=== PATIENT | female | born 1965 | race Caucasian/White ===

== ENCOUNTER → 2017-07-23 | Outpatient (CLI) | payer MEDICAID ==
[2017-07-23 11:12] LABS: Basophils % (A) 0 %; CH 31.4; CHCM 32.7; Eosinophils # (A) 0.2 k/uL (0-0.7); Eosinophils % (A) 5 %; HCT 44.2 % (34.0-46.0); HDW 2.86; HGB 14.5 gm/dL (11.4-16.0); Luc # (Auto) 0.16; Luc % (Auto) 4; Lymphocytes # (A) 0.6 k/uL (1.0-4.8); Lymphocytes % (A) 14 %; MCH 31.7 pg (25.0-35.0); MCHC 32.8 g/dL (31.0-37.0); MCV 96.4 fL (80.0-100.0); Mean Platelet Volume 8.3; Monocytes # (A) 0.2 k/uL (0-1.0); Monocytes % (A) 5 %; Neutrophils # (A) 3.3 k/uL (1.3-7.7); Neutrophils % (A) 73 %; RBC 4.58 m/uL (3.80-5.40); RDW 14.8 % (11.5-15.5); WBC 4.5 k/uL (3.8-10.6)
[2017-07-23 11:23] LABS: ALT 27 U/L (9-52); AST 26 U/L (14-36); Alkaline Phosphatase 95 U/L (38-126); Anion Gap 11 mmol/L; Blood Urea Nitrogen 12 mg/dL (7-17); Calcium 9.3 mg/dL (8.4-10.2); Carbon Dioxide 26 mmol/L (22-30); Chloride 109 mmol/L (98-107); Glucose 95 mg/dL (74-99); Non-African American GFR(MDRD) >60 (>60 ml/min/1.73 sqM); Potassium 3.7 mmol/L (3.5-5.1); Sodium 146 mmol/L (137-145); Total Protein 7.4 g/dL (6.3-8.2)
== END | disposition home or self-care (01) ==
LOC: LABWHC1 10:43
PROVIDERS: ATTEND Internal Medicine Rheumatology
DX: M06.4 Inflammatory polyarthropathy (principal)
CPT/HCPCS: 36415; 80053; 85025

== ENCOUNTER → 2018-07-27 | Outpatient (CLI) | payer MEDICAID ==
[2018-07-27 11:38] LABS: Basophils % (A) 1 %; Eosinophils # (A) 0.5 k/uL (0-0.7); Eosinophils % (A) 10 %; HCT 41.3 % (34.0-46.0); HGB 13.2 gm/dL (11.4-16.0); Lymphocytes # (A) 0.8 k/uL (1.0-4.8); Lymphocytes % (A) 16 %; MCH 31.1 pg (25.0-35.0); MCHC 31.9 g/dL (31.0-37.0); MCV 97.5 fL (80.0-100.0); Mean Platelet Volume 7.9; Monocytes # (A) 0.3 k/uL (0-1.0); Monocytes % (A) 5 %; Neutrophils # (A) 3.5 k/uL (1.3-7.7); Neutrophils % (A) 67 %; Platelet Count 205 k/uL (150-450); RBC 4.24 m/uL (3.80-5.40); RDW 13.6 % (11.5-15.5); WBC 5.2 k/uL (3.8-10.6)
[2018-07-27 11:58] LABS: Albumin 3.8 g/dL (3.5-5.0); Total Bilirubin 0.6 mg/dL (0.2-1.3); Total Protein 6.9 g/dL (6.3-8.2)
[2018-07-27 12:14] LABS: T4, Free (Free Thyroxine) 0.95 ng/dL (0.78-2.19)
[2018-07-27 14:09] LABS: Erythrocyte Sedimentation Rate 32 mm/hr (0-20)
[2018-07-27 16:44] LABS: Iron Saturation 20.69 (12.00-45.00)
[2018-07-27 16:53] LABS: Vitamin D 25 Hydroxy 34.1 ng/mL (30.0-100.0)
== END | disposition home or self-care (01) ==
LOC: LABWHC1 11:08
PROVIDERS: ATTEND Surgery
DX: K90.9 Intestinal malabsorption, unspecified (principal); E56.9 Vitamin deficiency, unspecified; M06.4 Inflammatory polyarthropathy
CPT/HCPCS: 36415; 80053; 82306; 82607; 82746; 83540; 83550; 84439; 84443; 84466; 84480; 85025; 85652

== ENCOUNTER → 2019-01-25 | Outpatient (CLI) | payer MEDICAID ==
--- NOTE | 2019-01-27 08:49 | MM ---
Reason for exam: screening (asymptomatic). Last mammogram was performed 5 years and 4 months ago. History: Patient is postmenopausal. Physical Findings: A clinical breast exam by your physician is recommended on an annual basis and results should be correlated with mammographic findings. MG 3D Screening Mammo W/Cad Bilateral CC and MLO view(s) were taken. Prior study comparison: September 09, 2013, bilateral digital screening mammo w/CAD. There are scattered fibroglandular densities. No significant changes when compared with prior studies. ASSESSMENT: Benign, BI-RAD 2 RECOMMENDATION: Routine screening mammogram of both breasts in 1 year.
== END | disposition home or self-care (01) ==
LOC: RADMAMWWP 13:12
PROVIDERS: ATTEND Internal Medicine
DX: Z12.31 Encounter for screening mammogram for malignant neoplasm of breast (principal)
CPT/HCPCS: 77063; 77067

== ENCOUNTER → 2019-04-21 | Outpatient (CLI) | payer MEDICAID ==
[2019-04-21 10:24] LABS: Basophils % (A) 1 %; Eosinophils # (A) 0.5 k/uL (0-0.7); Eosinophils % (A) 10 %; HGB 13.7 gm/dL (11.4-16.0); Lymphocytes # (A) 0.7 k/uL (1.0-4.8); Lymphocytes % (A) 15 %; MCH 30.3 pg (25.0-35.0); MCHC 31.9 g/dL (31.0-37.0); MCV 95.1 fL (80.0-100.0); Mean Platelet Volume 7.8; Monocytes # (A) 0.3 k/uL (0-1.0); Monocytes % (A) 6 %; Neutrophils # (A) 3.1 k/uL (1.3-7.7); Neutrophils % (A) 64 %; Platelet Count 227 k/uL (150-450); RBC 4.52 m/uL (3.80-5.40); RDW 14.3 % (11.5-15.5); WBC 4.8 k/uL (3.8-10.6)
[2019-04-21 12:28] LABS: Erythrocyte Sedimentation Rate 26 mm/hr (0-20)
[2019-04-21 18:07] LABS: Albumin 4.2 g/dL (3.80-4.90); Albumin/Globulin Ratio 1.68 (1.60-3.17); Anion Gap 10.6 mmol/L (4.00-12.00); Calcium 8.9 mg/dL (8.7-10.3); Carbon Dioxide 25.4 mmol/L (21.6-31.8); Globulin 2.5 g/dL (1.6-3.3); Potassium 4.3 mmol/L (3.5-5.5); Total Bilirubin 0.7 mg/dL (0.2-1.2); Total Protein 6.7 g/dL (6.2-8.2)
== END ==
LOC: LABWHC1 09:39
PROVIDERS: ATTEND Internal Medicine Rheumatology
DX: M06.4 Inflammatory polyarthropathy (principal)
CPT/HCPCS: 36415; 80053; 85025; 85652

== ENCOUNTER → 2019-06-21 | Outpatient (CLI) | payer MEDICAID ==
[2019-06-21 15:41] LABS: LDL Cholesterol,Calculated 120.8 mg/dL (0.0-131.0); VLDL Calculation 17.2 mg/dL (5.00-40.00)
--- NOTE | 2019-06-21 16:58 | XR ---
EXAMINATION TYPE: XR chest 2V, XR cervical spine w flex/ext 7 views, XR ribs LT 4 views DATE OF EXAM: 06/21/2019 COMPARISON: None HISTORY: 53 year-old female left infraclavicular pain/lump, chest pain, left neck pain. FINDINGS: Chest: The cardiomediastinal silhouette, aorta, and pulmonary vasculature are within normal limits. Lungs an d pleural spaces are clear. Left RIBS: No displaced left rib fracture. Mild degenerative spurring at the AC joint. Clavicle appears intact. Cervical spine: Scattered uncovertebral joint and facet arthropathy causing variable mild narrowing of the neuroforam en particularly on the left. Posterior element bony fusion at C2-C3. Vertebral body heights are prese rved. Alignment is maintained. Normal odontoid view. Flexion and extension shows no dynamic subluxati ons. Degenerative changes at the C1 dens articulation. IMPRESSION: 1. Chest: No acute cardiopulmonary process. 2. Left RIBS: No displaced left rib fracture seen. 3. Cervical spine: Mild spondylotic change with variable mild bony neuroforaminal narrowing particula rly on the left. No spondylolisthesis or evidence for dynamic subluxation.
== END | disposition home or self-care (01) ==
LOC: LABWHC1 11:37
PROVIDERS: ATTEND Internal Medicine
DX: Z00.00 Encounter for general adult medical examination without abnormal findings (principal); M99.71 Connective tissue and disc stenosis of intervertebral foramina of cervical region; M43.02 Spondylolysis, cervical region; R07.89 Other chest pain; E88.81 Metabolic syndrome and other insulin resistance
CPT/HCPCS: 36415; 71046; 72052; 80061

== ENCOUNTER → 2019-10-25 | Outpatient (CLI) | payer MEDICAID ==
--- NOTE | 2019-10-25 12:55 | US ---
EXAMINATION TYPE: US thyroid st tissue head/neck DATE OF EXAM: 10/25/2019 COMPARISON: NONE CLINICAL HISTORY: R59.1 Generalized enlarged lymph nodes,E04.1. palpable left lesion on supraclavicul ar region GLAND SIZE: Right Lobe: 4.4 x 1.0 x 1.0 cm Overall Parenchyma: homogenous Left Lobe: 3.2 x 1.0 x 0.9 cm Overall Parenchyma: homogeneous Isthmus Thickness: 0.3 cm NODULES RIGHT: # of nodules measured on right: 0 LEFT: # of nodules measured on left: 0 ISTHMUS: # of nodules measured in the isthmus: 0 Bilateral neck scanned, no evidence of lymphadenopathy. *palpable felt at left supraclavicular area appears to be 1.8cm lipoma, isoechoic area IMPRESSION: Lipoma noted at the site of palpable abnormality left supraclavicular region. Normal appearance of th e thyroid gland.
== END | disposition home or self-care (01) ==
LOC: RADUSWWP 12:14
PROVIDERS: ATTEND Internal Medicine
DX: D17.0 Benign lipomatous neoplasm of skin and subcutaneous tissue of head, face and neck (principal)
CPT/HCPCS: 76536

== ENCOUNTER → 2019-12-06 | Outpatient (CLI) | payer MEDICAID ==
[2019-12-06 17:42] LABS: Appearance,Urine Clear (Clear); Basophils % (A) 1 %; Bilirubin,Urine Negative (Negative); Blood,Urine Negative (Negative); Color,Urine Yellow; Eosinophils # (A) 0.3 k/uL (0-0.7); Eosinophils % (A) 4 %; Glucose,Urine (UA) Negative (Negative); HCT 41.3 % (34.0-46.0); HGB 13.4 gm/dL (11.4-16.0); Ketones,Urine Negative (Negative); Leukocyte Esterase,Urine Negative (Negative); Lymphocytes % (A) 14 %; MCH 31.1 pg (25.0-35.0); MCHC 32.4 g/dL (31.0-37.0); MCV 95.9 fL (80.0-100.0); Mean Platelet Volume 8.2; Monocytes # (A) 0.4 k/uL (0-1.0); Monocytes % (A) 6 %; Neutrophils # (A) 5.5 k/uL (1.3-7.7); Neutrophils % (A) 74 %; Nitrite,Urine Negative (Negative); PH, Urine 5.5 (5.0-8.0); Platelet Count 220 k/uL (150-450); Protein,Urine Negative (Negative); RBC 4.31 m/uL (3.80-5.40); RDW 13.2 % (11.5-15.5); Specific Gravity,Urine 1.013 (1.001-1.035); Urobilinogen,Urine <2.0 mg/dL (<2.0); WBC 7.5 k/uL (3.8-10.6)
[2019-12-06 18:02] LABS: Protein/Creatinine Ratio,Urine 0.1
[2019-12-06 22:10] LABS: Erythrocyte Sedimentation Rate 35 mm/hr (0-20)
[2019-12-07 01:02] LABS: Anion Gap 9.6 mmol/L (4.00-12.00); BUN/Creat Ratio 13.33 Ratio (12.00-20.00); C Reactive Protein 0.7 mg/dL (0.0-0.8); Calcium 8.8 mg/dL (8.7-10.3); Carbon Dioxide 26.4 mmol/L (21.6-31.8); Non-African American GFR(CKD) 72.5 (60.0-200.0); Potassium 3.9 mmol/L (3.5-5.5)
[2019-12-07 01:39] LABS: Anti-DNA, DS unit <1.0 IU/mL; DNA Double-Stranded NEGATIVE (NEGATIVE)
== END | disposition home or self-care (01) ==
LOC: LABWHC1 16:26
PROVIDERS: ATTEND Internal Medicine Rheumatology
DX: M32.9 Systemic lupus erythematosus, unspecified (principal)
CPT/HCPCS: 36415; 80048; 81003; 82570; 84156; 84450; 84460; 85025; 85652; 86140; 86160; 86162; 86225

== ENCOUNTER → 2020-07-24 | Outpatient (CLI) | payer MEDICAID ==
--- NOTE | 2020-07-24 11:58 | XR ---
EXAMINATION TYPE: XR abdomen 1V DATE OF EXAM: 07/24/2020 COMPARISON: NONE HISTORY: Pain TECHNIQUE: Single supine KUB image of the abdomen is obtained FINDINGS: Small bowel demonstrates no evidence for dilatation or air fluid levels. Gas and fecal material is seen in non-distended colon. No convincing evidence for pneumoperitoneum. No unusual calcifications. The lung bases are clear. The osseous structures are intact. IMPRESSION: 1. Overall nonobstructive bowel gas pattern. Moderate fecal stasis.
[2020-07-24 12:12] LABS: Basophils % (A) 1 %; Eosinophils # (A) 0.2 k/uL (0-0.7); Eosinophils % (A) 5 %; HCT 42.3 % (34.0-46.0); HGB 13.6 gm/dL (11.4-16.0); Lymphocytes # (A) 0.8 k/uL (1.0-4.8); Lymphocytes % (A) 16 %; MCHC 32.1 g/dL (31.0-37.0); MCV 96.4 fL (80.0-100.0); Mean Platelet Volume 8.6; Monocytes # (A) 0.3 k/uL (0-1.0); Monocytes % (A) 7 %; Neutrophils # (A) 3.3 k/uL (1.3-7.7); Neutrophils % (A) 69 %; Platelet Count 251 k/uL (150-450); RBC 4.38 m/uL (3.80-5.40); RDW 13.6 % (11.5-15.5); WBC 4.8 k/uL (3.8-10.6)
[2020-07-24 12:28] LABS: Appearance,Urine Clear (Clear); Bacteria,Urine Occasional /hpf; Bilirubin,Urine Negative (Negative); Blood,Urine Negative (Negative); Color,Urine Light Yellow; Glucose,Urine (UA) Negative (Negative); Ketones,Urine Negative (Negative); Leukocyte Esterase,Urine Trace (Negative); Nitrite,Urine Negative (Negative); PH, Urine 6.5 (5.0-8.0); Protein,Urine Negative (Negative); RBC,Urine <1 /hpf (0-5); Specific Gravity,Urine 1.005 (1.001-1.035); Squamous Epithelial Cell,Urine 2 /hpf (0-4); Urobilinogen,Urine <2.0 mg/dL (<2.0); WBC,Urine 2 /hpf (0-5)
[2020-07-24 12:57] LABS: Protein/Creatinine Ratio,Urine 0.265
[2020-07-24 19:08] LABS: Anti-DNA, DS unit <1.0 IU/mL; DNA Double-Stranded NEGATIVE (NEGATIVE)
[2020-07-24 19:14] LABS: T4, Free (Free Thyroxine) 1.1 ng/dL (0.80-1.80)
[2020-07-24 19:18] LABS: Anion Gap 9.6 mmol/L (4.00-12.00); C Reactive Protein 0.6 mg/dL (0.0-0.8); Calcium 9.4 mg/dL (8.7-10.3); Carbon Dioxide 27.4 mmol/L (21.6-31.8); Non-African American GFR(CKD) 63.8 (60.0-200.0); Potassium 4.2 mmol/L (3.5-5.5)
[2020-07-24 20:15] LABS: Erythrocyte Sedimentation Rate 45 mm/Hr (0-30)
== END | disposition home or self-care (01) ==
LOC: LABWHC1 10:19
PROVIDERS: ATTEND Internal Medicine
DX: K59.8 Other specified functional intestinal disorders (principal); K59.04 Chronic idiopathic constipation; D64.89 Other specified anemias; M25.50 Pain in unspecified joint; R60.9 Edema, unspecified; M79.7 Fibromyalgia; E03.9 Hypothyroidism, unspecified; K76.0 Fatty (change of) liver, not elsewhere classified; G25.81 Restless legs syndrome; M32.9 Systemic lupus erythematosus, unspecified; E53.8 Deficiency of other specified B group vitamins; Z92.25 Personal history of immunosuppression therapy; Z79.899 Other long term (current) drug therapy
CPT/HCPCS: 36415; 74018; 80048; 81001; 82570; 84156; 84439; 84443; 85025; 85652; 86140; 86160; 86162; 86225

== ENCOUNTER → 2020-09-04 | Outpatient (CLI) | payer MEDICAID | END | disposition home or self-care (01) | LOC: LABWHC1 14:11 | PROVIDERS: ATTEND Internal Medicine | DX: Z20.828 Contact with and (suspected) exposure to other viral communicable diseases (principal); R50.81 Fever presenting with conditions classified elsewhere | CPT/HCPCS: U0003; C9803 ==

== ENCOUNTER → 2020-09-25 | Outpatient (CLI) | payer MEDICAID ==
--- NOTE | 2020-09-25 14:53 | XR ---
EXAMINATION TYPE: XR chest 2V DATE OF EXAM: 09/25/2020 COMPARISON: Chest x-ray June 21, 2019 HISTORY: Shortness of breath and wheeze.Covid+ 3 weeks ago. TECHNIQUE: Frontal and lateral views of the chest are obtained. FINDINGS: There is no focal air space opacity, pleural effusion, or pneumothorax seen. The cardiac silhouette size is within normal limits. The osseous structures are intact. IMPRESSION: No suspicious acute pulmonary process currently.
== END | disposition home or self-care (01) ==
LOC: RADXRMAIN 14:32
PROVIDERS: ATTEND Internal Medicine
DX: R06.89 Other abnormalities of breathing (principal); R06.02 Shortness of breath; U07.1 COVID-19
CPT/HCPCS: 71046

== ENCOUNTER → 2021-02-05 | Outpatient (CLI) | payer MEDICAID ==
--- NOTE | 2021-02-05 13:31 | XR ---
EXAMINATION TYPE: XR knee limited LT DATE OF EXAM: 02/05/2021 CLINICAL HISTORY: Pain. TECHNIQUE: Two views of the left knee are obtained. COMPARISON: None. FINDINGS: There is no acute fracture/dislocation evident in left knee. Medial and lateral meniscal c alcification consistent with chondrocalcinosis. [id number] tricompartmental joint space loss an d mild spurring. The overlying soft tissue appears unremarkable. IMPRESSION: As above.
--- NOTE | 2021-02-05 13:32 | XR ---
EXAMINATION TYPE: XR hand complete LT DATE OF EXAM: 02/05/2021 CLINICAL HISTORY: Pain worse and third finger TECHNIQUE: Frontal, lateral and oblique images of the left hand are obtained. COMPARISON: None. FINDINGS: There is no acute fracture/dislocation evident in the left hand. Mild narrowing throughout the PIP and DIP joints of the fingers. Relative sparing of the MCP joints. No significant spurring. The overlying soft tissue appears unremarkable. IMPRESSION: As above.
--- NOTE | 2021-02-05 13:33 | XR ---
EXAMINATION TYPE: XR lumbosacral spine min 4V DATE OF EXAM: 02/05/2021 CLINICAL HISTORY: Left leg paresthesia and pain. TECHNIQUE: Frontal, lateral, and oblique images of the lumbar spine are obtained. COMPARISON: None FINDINGS: There are 5 lumbar type vertebral bodies identified. The lumbar spine shows straightens a lignment without evidence of acute fracture or dislocation. Mild disc space narrowing and anterior sp urring L2-L3 level. Vertebral body heights are maintained. The oblique images appear within normal l imits. The overlying soft tissue appears unremarkable. IMPRESSION: As above.
== END ==
LOC: RADXRMAIN 10:02
PROVIDERS: ATTEND Internal Medicine
DX: M51.36 Other intervertebral disc degeneration, lumbar region (principal); M76.892 Other specified enthesopathies of left lower limb, excluding foot; M25.842 Other specified joint disorders, left hand
CPT/HCPCS: 72110

== ENCOUNTER 2021-07-28 12:08 | Emergency (ER) | payer MEDICAID ==
[2021-07-28 12:23] VITALS: RESP 18
[2021-07-28] MEDS ORDERED: diphenhydrAMINE 50 MG/ML 1 ML VIAL IVP STA (13:09)
[2021-07-28] MEDS ORDERED: METOCLOPRAMIDE 5 MG/ML 2 ML VIAL IVP STA (13:09)
[2021-07-28] MEDS ORDERED: MAGNESIUM SULFATE-D5W PMX 1 GM in DEXTROSE/WATER 1 100ML.BAG IVPB ONE (13:10)
[2021-07-28 13:21] LABS: Basophils % (A) 0 %; Eosinophils # (A) 0.3 k/uL (0-0.7); Eosinophils % (A) 4 %; HCT 44.3 % (34.0-46.0); HGB 14.8 gm/dL (11.4-16.0); Lymphocytes # (A) 0.8 k/uL (1.0-4.8); Lymphocytes % (A) 12 %; MCH 33.2 pg (25.0-35.0); MCHC 33.3 g/dL (31.0-37.0); MCV 99.6 fL (80.0-100.0); Mean Platelet Volume 8.9; Monocytes # (A) 0.4 k/uL (0-1.0); Monocytes % (A) 5 %; Neutrophils # (A) 5.2 k/uL (1.3-7.7); Neutrophils % (A) 77 %; Platelet Count 239 k/uL (150-450); RBC 4.45 m/uL (3.80-5.40); RDW 13.8 % (11.5-15.5); WBC 6.7 k/uL (3.8-10.6)
[2021-07-28 13:31] LABS: INR 0.9 (<1.2); Partial Thromboplastin Time 24.5 sec (22.0-30.0); Prothrombin Time 9.8 sec (9.0-12.0)
[2021-07-28 13:32] LABS: ALT 18 U/L (4-34); AST 28 U/L (14-36); African American GFR (CKD) >90 (>60 ml/min/1.73 sqM); Albumin 4.3 g/dL (3.5-5.0); Alkaline Phosphatase 115 U/L (38-126); Anion Gap 11 mmol/L; Blood Urea Nitrogen 12 mg/dL (7-17); Calcium 9.4 mg/dL (8.4-10.2); Carbon Dioxide 25 mmol/L (22-30); Chloride 107 mmol/L (98-107); Glucose 149 mg/dL (74-99); Non-African American GFR(CKD) 85 (>60 ml/min/1.73 sqM); Potassium 3.4 mmol/L (3.5-5.1); Sodium 143 mmol/L (137-145); Total Bilirubin 0.6 mg/dL (0.2-1.3); Total Protein 7.4 g/dL (6.3-8.2)
--- NOTE | 2021-07-28 13:40 | ED ---
General Adult HPI - General Chief complaint: Recheck/Abnormal Lab/Rx Stated complaint: eleavted BP Source: patient Mode of arrival: ambulatory Limitations: no limitations - History of Present Illness Initial comments: Patient is a 56-year-old female with past medical history of lupus, GERD who presents emergency room and with reported hypertension. 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 3 weeks ago while at work she had an episode of sudden onset dizziness, headache and a sensation that she just didn't feel well. Reports the episode improved after a short period of time and she didn't think much of it. Patient states once again that she had sudden onset of similar symptoms yesterday while at work. Denies any provocative factors. She did sit down and her coworker took her blood pressure and it was noted to be extremely high. Patient does not have a history of high blood pressure does not take any medications for blood pressure control. She has had no recent medication changes. She admits that she began having a headache. This is not the worse headache of her life. No vision changes. Does admit to some photophobia. She has not taken any medications for her symptoms. No fevers or chills. Denies any neck pain or stiffness. No head trauma. She denies any weakness in her extremities. Denies fevers, chills or cough. No abdominal pain. No changes in her bowel or bladder habits. Patient denies previous history of cardiac disease. No chest pain or shortness of breath. The patient checked her blood pressure at home before coming into the emergency department today and it was noted to be high therefore she came in for evaluation. 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 - Related Data Home Medications Medication Instructions Recorded Confirmed DULoxetine HCL [Cymbalta] 60 mg PO BID 08/10/14 07/28/21 Hydroxychloroquine Sulfate 200 mg PO BID 08/10/14 07/28/21 [Plaquenil] Pantoprazole Sodium [Protonix] 40 mg PO DAILY 08/10/14 07/28/21 azaTHIOprine [Imuran] 25 mg PO BID 12/13/14 07/28/21 B,C/Folic/Zinc/Copper Ox/Vit E 1 tab PO DAILY 07/28/21 07/28/21 [Stress B-Complex Tablet] Calcium Carbonate [Calcium] 600 mg PO DAILY 07/28/21 07/28/21 Levothyroxine Sodium [Synthroid] 88 mcg PO DAILY 07/28/21 07/28/21 Multivitamins, Thera [Multivitamin 1 tab PO DAILY 07/28/21 07/28/21 (formulary)] Previous Rx's Medication Instructions Recorded amLODIPine [Norvasc] 5 mg PO DAILY #20 tab 07/28/21 Allergies Allergy/AdvReac Type Severity Reaction Status Date / Time No Known Allergies Allergy Verified 07/28/21 14:31 Review of Systems ROS Statement: Those systems with pertinent positive or pertinent negative responses have been documented in the HPI. ROS Other: All systems not noted in ROS Statement are negative. Past Medical History Past Medical History: GERD/Reflux, Musculoskeletal Disorder, Sleep Apnea/CPAP/BIPAP, Thyroid Disorder Additional Past Medical History / Comment(s): Lupus History of Any Multi-Drug Resistant Organisms: None Reported Past Surgical History: Section, Cholecystectomy, Hysterectomy, Orthopedic Surgery, Tonsillectomy Additional Past Surgical History / Comment(s): 4 Left knee surgeries Past Psychological History: Depression Smoking Status: Never smoker Past Alcohol Use History: Occasional Past Drug Use History: None Reported General Exam Limitations: no limitations General appearance: alert, in no apparent distress Head exam: Present: atraumatic, normocephalic, normal inspection Eye exam: Present: normal appearance, PERRL, EOMI. Absent: scleral icterus, conjunctival injection, periorbital swelling ENT exam: Present: normal exam, mucous membranes moist Neck exam: Present: normal inspection. Absent: tenderness, meningismus, lymphadenopathy Respiratory exam: Present: normal lung sounds bilaterally. Absent: respiratory distress, wheezes, rales, rhonchi, stridor Cardiovascular Exam: Present: regular rate, normal rhythm, normal heart sounds. Absent: systolic murmur, diastolic murmur, rubs, gallop, clicks GI/Abdominal exam: Present: soft, normal bowel sounds. Absent: distended, tenderness, guarding, rebound, rigid Extremities exam: Present: normal inspection, full ROM, normal capillary refill. Absent: tenderness, pedal edema, joint swelling, calf tenderness Back exam: Present: normal inspection Neurological exam: Present: alert, oriented X3, CN II-XII intact Psychiatric exam: Present: normal affect, normal mood Skin exam: Present: warm, dry, intact, normal color. Absent: rash Course Vital Signs 07/28/21 07/28/21 07/28/21 12:17 12:34 12:45 Temperature 97.4 F L Pulse Rate 101 H 105 H 98 Respiratory 18 Rate Blood Pressure 192/94 160/77 160/77 O2 Sat by Pulse 96 97 Oximetry 07/28/21 07/28/21 07/28/21 13:00 13:15 13:30 Temperature Pulse Rate 98 86 88 Respiratory Rate Blood Pressure 148/74 164/96 177/95 O2 Sat by Pulse 98 85 L 97 Oximetry 07/28/21 07/28/21 07/28/21 13:45 14:00 14:15 Temperature Pulse Rate 86 82 81 Respiratory Rate Blood Pressure 163/87 175/88 159/85 O2 Sat by Pulse 96 94 L Oximetry 07/28/21 14:30 Temperature 97.5 F L Pulse Rate 80 Respiratory Rate Blood Pressure 140/98 O2 Sat by Pulse 95 Oximetry EKG Findings - EKG Comments: EKG Findings:: EKG demonstrates normal sinus rhythm with ventricular rate of 100 . IN 130. QRS 134. QTC of 510. This right bundle-branch block. No old EKG for comparison. No acute ST segment elevations or depressions Medical Decision Making - Medical Decision Making Upon arrival patient was placed into room 4. A thorough history and physical exam was performed. 12-lead EKG was performed which demonstrates a right bu ndle-branch block. Nothing to compare to. IV is inserted. The patient was given 1 g of magnesium, 10 mg of Reglan and 25 mg of Benadryl. That decreases her conducted and the patient went for chest x-ray. Upon reevaluation the patient has had improvement in her symptoms. States her headache is now 3 out of 10. Blood pressure is improved on its own therefore she is given a dose of Toradol for further pain improvement. I discussed diagnosis, differential and treatment options. At this time the patient will be discharged home with a low- dose prescription for high blood pressure medication. She is instructed to take her blood pressures 2-3 times daily and keep a log. She is to follow up with her primary care doctor in regards to her blood pressure readings. She is instructed take the medication of her blood pressures greater than 140/90. The patient is a new or worsening symptoms she needs to return to the emergency room. Patient was in agreement with the treatment plan and discharged home in stable condition - Lab Data Result diagrams: 07/28/21 13:13 07/28/21 13:13 Lab Results 07/28/21 07/28/21 07/28/21 Range/Units 13:13 13:13 13:13 WBC 6.7 (3.8-10.6) k/uL RBC 4.45 (3.80-5.40) m/uL Hgb 14.8 (11.4-16.0) gm/dL Hct 44.3 (34.0-46.0) % MCV 99.6 (80.0-100.0) fL MCH 33.2 (25.0-35.0) pg MCHC 33.3 (31.0-37.0) g/dL RDW 13.8 (11.5-15.5) % Plt Count 239 (150-450) k/uL MPV 8.9 Neutrophils % 77 % Lymphocytes % 12 % Monocytes % 5 % Eosinophils % 4 % Basophils % 0 % Neutrophils # 5.2 (1.3-7.7) k/uL Lymphocytes # 0.8 L (1.0-4.8) k/uL Monocytes # 0.4 (0-1.0) k/uL Eosinophils # 0.3 (0-0.7) k/uL Basophils # 0.0 (0-0.2) k/uL PT 9.8 (9.0-12.0) sec INR 0.9 (<1.2) APTT 24.5 (22.0-30.0) sec Sodium 143 (137-145) mmol/L Potassium 3.4 L (3.5-5.1) mmol/L Chloride 107 (98-107) mmol/L Carbon Dioxide 25 (22-30) mmol/L Anion Gap 11 mmol/L BUN 12 (7-17) mg/dL Creatinine 0.79 (0.52-1.04) mg/dL Est GFR (CKD-EPI)AfAm >90 (>60 ml/min/1.73 sqM) Est GFR (CKD-EPI)NonAf 85 (>60 ml/min/1.73 sqM) Glucose 149 H (74-99) mg/dL Calcium 9.4 (8.4-10.2) mg/dL Total Bilirubin 0.6 (0.2-1.3) mg/dL AST 28 (14-36) U/L ALT 18 (4-34) U/L Alkaline Phosphatase 115 (38-126) U/L Troponin I (0.000-0.034) ng/mL Total Protein 7.4 (6.3-8.2) g/dL Albumin 4.3 (3.5-5.0) g/dL TSH 1.470 (0.465-4.680) mIU/L 07/28/21 Range/Units 13:13 WBC (3.8-10.6) k/uL RBC (3.80-5.40) m/uL Hgb (11.4-16.0) gm/dL Hct (34.0-46.0) % MCV (80.0-100.0) fL MCH (25.0-35.0) pg MCHC (31.0-37.0) g/dL RDW (11.5-15.5) % Plt Count (150-450) k/uL MPV Neutrophils % % Lymphocytes % % Monocytes % % Eosinophils % % Basophils % % Neutrophils # (1.3-7.7) k/uL Lymphocytes # (1.0-4.8) k/uL Monocytes # (0-1.0) k/uL Eosinophils # (0-0.7) k/uL Basophils # (0-0.2) k/uL PT (9.0-12.0) sec INR (<1.2) APTT (22.0-30.0) sec Sodium (137-145) mmol/L Potassium (3.5-5.1) mmol/L Chloride (98-107) mmol/L Carbon Dioxide (22-30) mmol/L Anion Gap mmol/L BUN (7-17) mg/dL Creatinine (0.52-1.04) mg/dL Est GFR (CKD-EPI)AfAm (>60 ml/min/1.73 sqM) Est GFR (CKD-EPI)NonAf (>60 ml/min/1.73 sqM) Glucose (74-99) mg/dL Calcium (8.4-10.2) mg/dL Total Bilirubin (0.2-1.3) mg/dL AST (14-36) U/L ALT (4-34) U/L Alkaline Phosphatase (38-126) U/L Troponin I <0.012 (0.000-0.034) ng/mL Total Protein (6.3-8.2) g/dL Albumin (3.5-5.0) g/dL TSH (0.465-4.680) mIU/L Disposition Clinical Impression: Cephalgia, Hypertension Disposition: HOME SELF-CARE Condition: Stable Instructions (If sedation given, give patient instructions): Hypertension (ED) Additional Instructions: Please measure your blood pressure twice to three times daily and keep a log. F ollow up with your PCP. Take the blood pressure pill if your blood pressure is greater than 140/80. Return to the ED for any new or worsening symptoms. Prescriptions: amLODIPine [Norvasc] 5 mg PO DAILY #20 tab Is patient prescribed a controlled substance at d/c from ED?: No Referrals: Ashley Alas DO [Primary Care Provider] - 1-2 days Time of Disposition: 14:28
--- NOTE | 2021-07-28 13:47 | XR ---
EXAMINATION TYPE: XR chest 2V DATE OF EXAM: 07/28/2021 COMPARISON: Chest x-ray 09/25/2020 HISTORY: Cough and pain TECHNIQUE: Frontal and lateral views of the chest are obtained. FINDINGS: There is no focal air space opacity, pleural effusion, or pneumothorax seen. The cardiac silhouette size is within normal limits. There are overlying leads. Right hemidiaphragm remains eleva svetlana. The osseous structures are intact. IMPRESSION: No acute cardiopulmonary process.
[2021-07-28] MEDS ORDERED: KETOROLAC 15 MG/ML 1 ML VIAL IVP STA (14:26)
[2021-07-28 14:36] VITALS: BP 140/98; PULSE 80; TEMP 97.5
== END 2021-07-28 14:43 | disposition home or self-care (01) ==
LOC: EC 12:08
DX: I10 Essential (primary) hypertension (principal); K21.9 Gastro-esophageal reflux disease without esophagitis; F32.9 Major depressive disorder, single episode, unspecified; Z79.890 Hormone replacement therapy; Z79.899 Other long term (current) drug therapy
CPT/HCPCS: 36415; 93005; 80053; 84443; 84484; 85025; 85610; 85730; 71046; 96365; 96375 ×3; 99284; J1200; J2765; J3475; J1885

== ENCOUNTER → 2021-12-05 | Outpatient (CLI) | payer MEDICAID ==
[2021-12-05 18:46] LABS: Basophils # (A) 0.04 X 10*3/uL (0.00-0.10); Basophils % (A) 0.7 %; Eosinophils # (A) 0.08 X 10*3/uL (0.04-0.35); Eosinophils % (A) 1.4 %; HCT 39.3 % (37.2-46.3); HGB 12.7 g/dL (12.0-15.0); Lymphocytes # (A) 0.83 X 10*3/uL (0.90-5.00); Lymphocytes % (A) 14.7 %; MCH 32.8 pg (27.0-32.0); MCHC 32.3 g/dL (32.0-37.0); MCV 101.6 fL (80.0-97.0); Mean Platelet Volume 10.6 fL (9.5-12.2); Monocytes # (A) 0.54 X 10*3/uL (0.20-1.00); Monocytes % (A) 9.6 %; Neutrophils # (A) 4.13 X 10*3/uL (1.80-7.70); Neutrophils % (A) 73.2 %; Platelet Count 294 X 10*3/uL (140-440); RBC 3.87 X 10*6/uL (4.10-5.20); RDW 14.1 % (11.5-14.5); WBC 5.64 X 10*3/uL (4.50-10.00)
[2021-12-05 20:01] LABS: Erythrocyte Sedimentation Rate 54 mm/Hr (0-30)
[2021-12-05 21:07] LABS: African American GFR (CKD) 82.8 (60.0-200.0); Albumin 4.2 g/dL (3.8-4.9); Albumin/Globulin Ratio 1.62 (1.60-3.17); Anion Gap 15.9 mmol/L (10.00-18.00); BUN/Creat Ratio 9.33 Ratio (12.00-20.00); Blood Urea Nitrogen 8.4 mg/dL (9.0-27.0); C Reactive Protein 0.8 mg/dL (0.00-0.80); Calcium 8.8 mg/dL (8.7-10.3); Carbon Dioxide 22.1 mmol/L (20.0-27.5); Globulin 2.6 g/dL (1.6-3.3); Non-African American GFR(CKD) 71.5 (60.0-200.0); Total Bilirubin 0.4 mg/dL (0.30-1.20); Total Protein 6.8 g/dL (6.2-8.2)
== END | disposition home or self-care (01) ==
LOC: LABWHC1 12:51
PROVIDERS: ATTEND Internal Medicine Rheumatology
DX: Z79.899 Other long term (current) drug therapy (principal)
CPT/HCPCS: 36415; 80053; 85025; 85652; 86140

== ENCOUNTER → 2021-12-30 | Outpatient (CLI) | payer MEDICAID ==
[2021-12-30 18:58] LABS: Basophils # (A) 0.03 X 10*3/uL (0.00-0.10); Basophils % (A) 0.5 %; Eosinophils # (A) 0 X 10*3/uL (0.04-0.35); Eosinophils % (A) 0 %; HCT 42.2 % (37.2-46.3); HGB 13.5 g/dL (12.0-15.0); Lymphocytes % (A) 13.4 %; MCH 32.4 pg (27.0-32.0); MCV 101.2 fL (80.0-97.0); Mean Platelet Volume 10.5 fL (9.5-12.2); Monocytes # (A) 0.42 X 10*3/uL (0.20-1.00); Neutrophils # (A) 4.72 X 10*3/uL (1.80-7.70); Neutrophils % (A) 78.9 %; Platelet Count 309 X 10*3/uL (140-440); RBC 4.17 X 10*6/uL (4.10-5.20); RDW 12.9 % (11.5-14.5); WBC 5.98 X 10*3/uL (4.50-10.00)
[2021-12-30 19:22] LABS: African American GFR (CKD) 78.5 (60.0-200.0); Albumin 4.3 g/dL (3.8-4.9); Albumin/Globulin Ratio 1.27 (1.60-3.17); Anion Gap 13.2 mmol/L (10.00-18.00); BUN/Creat Ratio 10.19 Ratio (12.00-20.00); Blood Urea Nitrogen 9.6 mg/dL (9.0-27.0); Calcium 9.4 mg/dL (8.7-10.3); Carbon Dioxide 24.7 mmol/L (20.0-27.5); Globulin 3.4 g/dL (1.6-3.3); Magnesium 2.1 mg/dL (1.5-2.4); Non-African American GFR(CKD) 67.7 (60.0-200.0); Phosphorus 3.7 mg/dL (2.4-5.1); Potassium 4.1 mmol/L (3.5-5.5); T4, Free (Free Thyroxine) 1.01 ng/dL (0.800-1.800); Total Bilirubin 0.6 mg/dL (0.30-1.20); Total Protein 7.7 g/dL (6.2-8.2)
== END | disposition home or self-care (01) ==
LOC: LABWHC1 12:16
PROVIDERS: ATTEND Internal Medicine
DX: I10 Essential (primary) hypertension (principal); Z79.899 Other long term (current) drug therapy; F06.4 Anxiety disorder due to known physiological condition; M32.10 Systemic lupus erythematosus, organ or system involvement unspecified; Z90.3 Acquired absence of stomach [part of]; R00.2 Palpitations
CPT/HCPCS: 36415; 80053; 83735; 84100; 84439; 84443; 85025

== ENCOUNTER → 2022-12-12 | Outpatient (CLI) | payer MEDICAID ==
[2022-12-12 18:24] LABS: C Reactive Protein 1.1 mg/dL (0.00-0.80)
[2022-12-12 18:26] LABS: African American GFR (CKD) 72.4 (60.0-200.0); Albumin 4.2 g/dL (3.8-4.9); Albumin/Globulin Ratio 1.31 (1.60-3.17); Anion Gap 9.8 mmol/L (10.00-18.00); BUN/Creat Ratio 9.3 Ratio (12.00-20.00); Blood Urea Nitrogen 9.3 mg/dL (9.0-27.0); Calcium 9.2 mg/dL (8.7-10.3); Carbon Dioxide 27.2 mmol/L (20.0-27.5); Globulin 3.2 g/dL (1.6-3.3); Non-African American GFR(CKD) 62.5 (60.0-200.0); Potassium 4.4 mmol/L (3.5-5.5); Total Bilirubin 0.5 mg/dL (0.30-1.20); Total Protein 7.4 g/dL (6.2-8.2)
[2022-12-12 21:03] LABS: DNA Double-Stranded NEGATIVE (NEGATIVE)
== END | disposition home or self-care (01) ==
LOC: LABWHC1 10:47
PROVIDERS: ATTEND Internal Medicine Rheumatology
DX: M32.9 Systemic lupus erythematosus, unspecified (principal); Z79.899 Other long term (current) drug therapy
CPT/HCPCS: 36415; 80053; 85025; 85652; 86140; 86160; 86225

== ENCOUNTER → 2023-02-27 | Outpatient (CLI) | payer MEDICAID ==
[2023-02-27 19:29] LABS: C Reactive Protein 1.3 mg/dL (0.00-0.80)
[2023-02-27 19:40] LABS: Basophils # (A) 0.02 X 10*3/uL (0.00-0.10); Basophils % (A) 0.3 %; Eosinophils # (A) 0.21 X 10*3/uL (0.04-0.35); Eosinophils % (A) 3.6 %; HCT 41.5 % (37.2-46.3); HGB 12.9 g/dL (12.0-15.0); Immature Grans, Automated 0.3 %; Lymphocytes # (A) 0.64 X 10*3/uL (0.90-5.00); Lymphocytes % (A) 10.9 %; MCHC 31.1 g/dL (32.0-37.0); MCV 99.8 fL (80.0-97.0); Mean Platelet Volume 10.7 fL (9.5-12.2); Monocytes # (A) 0.41 X 10*3/uL (0.20-1.00); NRBC Per 100 WBC 0 /100 WBCS (0.0-0.0); Neutrophils # (A) 4.55 X 10*3/uL (1.80-7.70); Neutrophils % (A) 77.9 %; Platelet Count 291 X 10*3/uL (140-440); RBC 4.16 X 10*6/uL (4.10-5.20); RDW 14.6 % (11.5-14.5); WBC 5.85 X 10*3/uL (4.50-10.00)
[2023-02-27 20:02] LABS: African American GFR (CKD) 72.4 (60.0-200.0); Albumin 4.1 g/dL (3.8-4.9); Albumin/Globulin Ratio 1.24 (1.60-3.17); Anion Gap 13.2 mmol/L (10.00-18.00); BUN/Creat Ratio 7.4 Ratio (12.00-20.00); Blood Urea Nitrogen 7.4 mg/dL (9.0-27.0); Calcium 9.4 mg/dL (8.7-10.3); Carbon Dioxide 24.8 mmol/L (20.0-27.5); Globulin 3.3 g/dL (1.6-3.3); Non-African American GFR(CKD) 62.5 (60.0-200.0); Potassium 4.9 mmol/L (3.5-5.5); Total Bilirubin 0.4 mg/dL (0.30-1.20); Total Protein 7.4 g/dL (6.2-8.2)
[2023-02-27 20:09] LABS: Erythrocyte Sedimentation Rate 55 mm/Hr (0-30)
[2023-02-27 20:59] LABS: DNA Double-Stranded NEGATIVE (NEGATIVE)
== END | disposition home or self-care (01) ==
LOC: LABWHC1 11:03
PROVIDERS: ATTEND Internal Medicine Rheumatology
DX: M32.9 Systemic lupus erythematosus, unspecified (principal); Z79.899 Other long term (current) drug therapy
CPT/HCPCS: 36415; 80053; 85025; 85652; 86140; 86160; 86225

== ENCOUNTER 2023-04-02 11:23 | Emergency (ER) | payer MEDICAID ==
--- NOTE | 2023-04-02 12:44 | ED ---
Extremity Problem HPI - General Chief complaint: Extremity Injury, Lower Stated complaint: Left leg swelling Time Seen by Provider: 04/02/23 12:11 Source: patient, RN notes reviewed, old records reviewed Mode of arrival: ambulatory Limitations: no limitations - History of Present Illness Initial comments: This is a 57-year-old female to the emergency department for evaluation of severe right lower extremity pain. Patient does have severe Pain does have prior and she has been evaluated by an orthopedic doctor for right knee with known meniscal tear which is not correlating to her pain.. Patient has persistent right lower extremity pain here in the emergency department patient presents with pain worsening over time and now with increased swelling 2 days in the left wrist pain. The pain does not let up swelling is increasing daily and almost feels like it's increasing by the minute per the patient with increased swelling increased tenderness and increased pain MD Complaint: extremity pain, extremity swelling -: hour(s) Location: right, lower extremity -: Yes arthralgia Radiation: none Severity scale (1-10): 7 Quality: aching Consistency: constant Improves with: cold therapy Worsens with: nothing Associated Symptoms: denies other symptoms - Related Data Home Medications Medication Instructions Recorded Confirmed DULoxetine HCL [Cymbalta] 60 mg PO BID 08/10/14 03/26/23 Hydroxychloroquine Sulfate 200 mg PO BID 08/10/14 03/26/23 [Plaquenil] Pantoprazole Sodium [Protonix] 40 mg PO DAILY 08/10/14 03/26/23 azaTHIOprine [Imuran] 25 mg PO BID 12/13/14 03/26/23 B,C/Folic/Zinc/Copper Ox/Vit E 1 tab PO DAILY 07/28/21 03/26/23 [Stress B-Complex Tablet] Calcium Carbonate [Calcium] 600 mg PO DAILY 07/28/21 03/26/23 Levothyroxine Sodium [Synthroid] 88 mcg PO DAILY 07/28/21 03/26/23 Multivitamins, Thera [Multivitamin 1 tab PO DAILY 07/28/21 03/26/23 (formulary)] carvediloL [Coreg] 3.125 mg PO BID 03/26/23 03/26/23 Previous Rx's Medication Instructions Recorded amLODIPine [Norvasc] 5 mg PO DAILY #20 tab 07/28/21 Allergies Allergy/AdvReac Type Severity Reaction Status Date / Time No Known Allergies Allergy Verified 04/02/23 12:02 Review of Systems ROS Statement: Those systems with pertinent positive or pertinent negative responses have been documented in the HPI. ROS Other: All systems not noted in ROS Statement are negative. Past Medical History Past Medical History: GERD/Reflux, Hypertension, Musculoskeletal Disorder, Sleep Apnea/CPAP/BIPAP, Thyroid Disorder Additional Past Medical History / Comment(s): Lupus History of Any Multi-Drug Resistant Organisms: None Reported Past Surgical History: Section, Cholecystectomy, Hysterectomy, Orthopedic Surgery, Tonsillectomy Additional Past Surgical History / Comment(s): 4 Left knee surgeries Past Anesthesia/Blood Transfusion Reactions: No Reported Reaction Past Psychological History: Depression Smoking Status: Never smoker Past Alcohol Use History: Occasional Past Drug Use History: None Reported - Past Family History Father Family Medical History: Cancer, Diabetes Mellitus, Hypertension Mother Family Medical History: Hypertension, Renal Disease General Exam - General Exam Comments Initial Comments: Significant right lower extremity edema and tenderness to the calf Limitations: no limitations General appearance: alert, in no apparent distress Head exam: Present: atraumatic, normocephalic, normal inspection Eye exam: Present: normal appearance, PERRL, EOMI. Absent: scleral icterus, conjunctival injection, periorbital swelling ENT exam: Present: normal exam, mucous membranes moist Neck exam: Present: normal inspection. Absent: tenderness, meningismus, lymphadenopathy Respiratory exam: Present: normal lung sounds bilaterally. Absent: respiratory distress, wheezes, rales, rhonchi, stridor Cardiovascular Exam: Present: regular rate, normal rhythm, normal heart sounds. Absent: systolic murmur, diastolic murmur, rubs, gallop, clicks GI/Abdominal exam: Present: soft, normal bowel sounds. Absent: distended, tenderness, guarding, rebound, rigid Extremities exam: Present: normal inspection, full ROM, normal capillary refill. Absent: tenderness, pedal edema, joint swelling, calf tenderness Back exam: Present: normal inspection Neurological exam: Present: alert, oriented X3, CN II-XII intact Psychiatric exam: Present: normal affect, normal mood Skin exam: Present: warm, dry, intact, normal color. Absent: rash Course Vital Signs 04/02/23 04/02/23 04/02/23 12:02 14:22 15:12 Temperature 98.6 F 98.1 F 98 F Pulse Rate 98 78 76 Respiratory 18 16 16 Rate Blood Pressure 146/80 173/84 156/108 O2 Sat by Pulse 96 98 98 Oximetry - Reevaluation(s) Reevaluation #1: 04/02/23 22:15 Medical record is reviewed Reevaluation #2: 04/02/23 22:15 Patient has severe persistent right leg pain here in the ER Reevaluation #3: Patient informed results and questions answered Patient aware to follow up after surgery for hematoma evacuation due to pain would be best case scenario Reevaluation #4: 04/02/23 22:15 Was pt. sent in by a medical professional or institution? @ -no Did you speak to anyone other than the patient for history? @ -no Did you review nursing and triage notes? @ -agree Were old charts reviewed? @ -no Differential Diagnosis? @ -prior EKG interpreted by me (3pts min.)? @ -no X-rays interpreted by me (1pt min.)? @ -no CT interpreted by me (1pt min.)? @ -no U/S interpreted by me (1pt. min.)? @ -no What testing was considered but not performed? (CT, X-rays, U/S, labs)? Why? @ -no What meds were considered but not given? Why? @ -no Did you discuss the management of the patient with other professionals? @ -no Did you reconcile home meds? @ -no Was smoking cessation discussed for >3mins.? @ -no Was critical care preformed (if so, how long)? @ -no Were there social determinants of health that impacted care today? How? (Homelessness, low income, unemployed, alcoholism, drug addiction, transportation, low edu. Level, literacy, decrease access to med. care, senior care, rehab)? @ -no Was there de-escalation of care discussed even if they declined? (Discuss DNR or withdrawal of care, Hospice)? @ -no What co-morbidities impacted this encounter? (DM, HTN, Smoking, COPD, CAD, Cancer, CVA, Hep., AIDS, mental health diagnosis, sleep apnea, morbid obesity)? @ -no Was patient admitted / discharged? @ -dc Undiagnosed new problem with uncertain prognosis? @ -no Drug Therapy requiring intensive monitoring for toxicity (Heparin, Nitro, Insulin, Cardizem)? @ -no Were any procedures done? @ -no Diagnosis/symptom? @ -R leg hematoma Acute, or Chronic, or Acute on Chronic? @ -acute Uncomplicated (without systemic symptoms) or Complicated (systemic symptoms)? @ -uncomplicated Side effects of treatment? @ -none Exacerbation, Progression, or Severe Exacerbation] @ - Poses a threat to life or bodily function? @ -no - Consultations Consultation #1: Spoke with orthopedics ammunition and explosives handler for Dr. Tony regarding findings, recommend follow up with vascular surgery Medical Decision Making - Medical Decision Making 57 female to the emergency department to the emergency department for evaluation severe right leg pain with hematoma and edema of her right lower extremity, calf hematoma of significant size with severe pain and tenderness. Also negative for DVT patient can be discharged home to follow up with vascular surgery for possible hematoma evacuation and pain control - Radiology Data Radiology results: report reviewed (Ultrasound lower extremity negative for DVT), image reviewed Disposition Clinical Impression: Hematoma of right lower leg, Right leg pain, Leg edema, right Disposition: HOME SELF-CARE Condition: Good Instructions (If sedation given, give patient instructions): Hematoma (ED) Is patient prescribed a controlled substance at d/c from ED?: No Referrals: Sherrell Fitzpatrick DO [STAFF PHYSICIAN] - 1-2 days Joshua Tony MD [Medical Doctor] - 1-2 days Hector Marr MD [STAFF PHYSICIAN] - 1-2 days Time of Disposition: 15:05
--- NOTE | 2023-04-02 13:59 | US ---
EXAMINATION TYPE: US venous doppler duplex LE RT DATE OF EXAM: 04/02/2023 1:48 PM COMPARISON: NONE CLINICAL INDICATION: Female, 57 years old with history of DVT; No hx of DVT. Patient does not take bl ood thinners. Pain posterior upper calf. Hx of torn meniscus in December. SIDE PERFORMED: Right TECHNIQUE: The lower extremity deep venous system is examined utilizing real time linear array sonog cynthia with graded compression, doppler sonography and color-flow sonography. VESSELS IMAGED: Common Femoral Vein Deep Femoral Vein Greater Saphenous Vein * Femoral Vein Popliteal Vein Small Saphenous Vein * Proximal Calf Veins (* superficial vessels) Right Leg: No evidence of DVT. At patient's area of pain, within the right upper posterior calf, there appears to be a septated comp kimberly area: 8.6 x 4.3 x 1.6 cm. Impression: 1. No evidence for deep vein thrombosis of the right lower extremity. 2. Complex fluid collection in the posterior favored to represent a hematoma in the setting of blood thinners.
[2023-04-02 14:24] VITALS: RESP 16
[2023-04-02 15:16] VITALS: BP 156/108; PULSE 76; TEMP 98
== END 2023-04-02 15:30 | disposition home or self-care (01) ==
LOC: EC 11:23
DX: S80.11XA Contusion of right lower leg, initial encounter (principal); K21.9 Gastro-esophageal reflux disease without esophagitis; I10 Essential (primary) hypertension; E07.9 Disorder of thyroid, unspecified; F32.A Depression, unspecified; Z79.890 Hormone replacement therapy; Z79.899 Other long term (current) drug therapy; X58.XXXA Exposure to other specified factors, initial encounter
CPT/HCPCS: 99283

== ENCOUNTER 2023-04-16 13:06 | Day surgery (SDC) | payer MEDICAID ==
[2023-04-16 13:52] VITALS: RESP 18; TEMP 98.1
[2023-04-16 16:04] VITALS: BP 188/85; PULSE 84
--- NOTE | 2023-04-16 18:19 | US ---
EXAMINATION TYPE: US guided asp/inj major joint DATE OF EXAM: 04/16/2023 Comparison: Correlation MRI 01/30/2023 Clinical History: 57-year-old female with history of lupus, M25.561 PAIN IN RIGHT KNEE Procedure: 1. Ultrasound of the suprapatellar pouch of the right knee joint 2. Aspiration of the right knee joint with ultrasound guidance. Findings: Underlying moderate joint effusion and suggestion of possible mild synovial thickening in the right k nee. Technique: The procedure, risks, and alternatives, were discussed with the patient, who requested mj t we proceed. The consent form was signed, and teach-back occurred. The site/side of the procedure wa s marked with a line with participation by the patient. The accompanying paperwork was verified for c onsistency. A directed history and physical exam was performed prior to the procedure. Medication rec onciliation was performed by ancillary personnel. A critical pause was performed with assisting samir loo just prior to the procedure and the patient's identity was confirmed using 2 identifiers. Imagin g guidance was utilized to select the precise skin entry point just prior to the procedure, the right knee suprapatellar pouch via a lateral approach. The right knee was prepped and draped in the usual sterile fashion and local 1% lidocaine anesthesia was instilled. Under ultrasound guidance, an 18 gauge spinal needle was introduced into the right kne e joint effusion. Ultrasound confirmed the position of the needle tip. Aspiration yielded approximately 23 mL of clear yellow synovial fluid. Some floating debris was noted in the fluid. This was labeled and sent for lab oratory analysis. The needle was then removed. The patient tolerated the procedure well. There were no immediate complications. After the procedure, the patient's condition was unchanged. Es timated blood loss was minimal. The patient was instructed on routine postprocedure precautions, incl uding avoiding water on the area for the next 24 hours. IMPRESSION: Successful ultrasound guided right knee joint aspiration with 23 mL yellow synovial fluid removed. So me floating debris was noted in the fluid. Laboratory analysis pending.
[2023-04-16 22:12] LABS: Appearance,BF Clear; Color,BF Yellow
[2023-04-16 22:13] LABS: Nucleated Cells, Body Fluid 15 /uL; RBC, Body Fluid 995 /uL
[2023-04-17 05:29] LABS: Synovial Fld Crystals None Seen (None Seen)
== END 2023-04-16 15:07 | disposition home or self-care (01) ==
LOC: RADPROMAIN 13:06
PROVIDERS: ATTEND Internal Medicine Rheumatology
DX: M25.461 Effusion, right knee (principal)
CPT/HCPCS: 20611; 87070; 87075; 87205; 89050; 89060

== ENCOUNTER → 2024-01-21 | Outpatient (CLI) | payer MEDICAID ==
[2024-01-21 16:17] LABS: Appearance,Urine Clear (Clear); Bilirubin,Urine Negative (Negative); Blood,Urine Negative (Negative); Color,Urine Dark Yellow (Yellow); Ketones,Urine Negative (Negative); Nitrite,Urine Negative (Negative); Specific Gravity,Urine 1.017 (1.001-1.030)
[2024-01-21 18:39] LABS: Basophils # (A) 0.03 X 10*3/uL (0.00-0.10); Basophils % (A) 0.6 %; Eosinophils # (A) 0 X 10*3/uL (0.04-0.35); Eosinophils % (A) 0 %; HCT 36.7 % (37.2-46.3); HGB 11.7 g/dL (12.0-15.0); Lymphocytes # (A) 0.68 X 10*3/uL (0.90-5.00); MCH 31.9 pg (27.0-32.0); MCHC 31.9 g/dL (32.0-37.0); Mean Platelet Volume 10.3 FL (9.5-12.2); Monocytes # (A) 0.41 X 10*3/uL (0.20-1.00); Monocytes % (A) 7.8 %; NRBC Per 100 WBC 0 X 10*3/uL (0.00-0.01); Neutrophils # (A) 4.11 X 10*3/uL (1.80-7.70); Neutrophils % (A) 78.4 %; Platelet Count 309 X 10*3/uL (140-440); RBC 3.67 X 10*6/uL (4.10-5.20); RDW 14.5 % (11.5-14.5); WBC 5.24 X 10*3/uL (4.50-10.00)
[2024-01-21 19:59] LABS: Erythrocyte Sedimentation Rate 26 mm/Hr (0-30)
[2024-01-21 21:23] LABS: Creatine Kinase 229 U/L (26-186)
[2024-01-21 21:24] LABS: ALT 18 U/L (8-44); AST 24 U/L (13-35); Albumin 4.2 g/dL (3.8-4.9); Alkaline Phosphatase 122 U/L (41-126); BUN/Creat Ratio 12.78 Ratio (12.00-20.00); Blood Urea Nitrogen 11.5 mg/dL (9.0-27.0); Calcium 8.9 mg/dL (8.7-10.3); Carbon Dioxide 25.5 mmol/L (21.6-31.8); Chloride 105 mmol/L (96-109); Globulin 2.8 g/dL (1.6-3.3); Glucose 94 mg/dL (70-110); Potassium 4.3 mmol/L (3.5-5.5); Sodium 143 mmol/L (135-145); Total Bilirubin 0.5 mg/dL (0.3-1.2)
== END | disposition home or self-care (01) ==
LOC: LABWHC1 11:12
PROVIDERS: ATTEND Internal Medicine Rheumatology
DX: R70.0 Elevated erythrocyte sedimentation rate (principal); M35.9 Systemic involvement of connective tissue, unspecified; Z79.899 Other long term (current) drug therapy
CPT/HCPCS: 36415; 80053; 81003; 82550; 85025; 85652; 86140; 86160

== ENCOUNTER → 2024-01-29 | Outpatient (CLI) | payer MEDICAID ==
--- NOTE | 2024-01-30 13:19 | MR ---
EXAMINATION TYPE: MR thoracic spine wo con DATE OF EXAM: 01/29/2024 9:07 PM CLINICAL INDICATION:Female, 58 years old with history of M54.6 THORACIC PAIN; PHH, Mid back pain, corbin n down both legs. COMPARISON: No priors. TECHNIQUE: Multi planar, multi sequence imaging was performed utilizing: T1-weighted, short-tau inver alexx recovery and T2-weighted of the thoracic spine. IV Contrast: cc (none if empty) FINDINGS: Alignment: Alignment is within normal limits. Vertebral bodies have preserved heights. Spinal cord: Spinal cord is within normal limits for signal. Discs: Intervertebral disc signal is maintained. No evidence of significant spinal canal or neural fo raminal stenosis. There is no evidence of extradural defects or central spinal canal narrowing at any thoracic vertebral body level. Facet joint arthropathy mild to moderate at T11-T12 with moderate davina ateral neural foraminal stenosis. Osseous structures: No abnormal bony edema on inversion recovery sequences. Multilevel osteophyte for mation and facet joint arthropathy. Scattered Schmorl's nodes are seen throughout the spine. Scattere d disc space narrowing. T2 vertebral body height T2 signal lesion measuring 15 mm and T3 measuring 13 mm not well appreciated on T1-weighted imaging possibly relating to vertebral body he mangiomas. The heart is enlarged for size. IMPRESSION: 1. Mild to moderate degeneration changes of the spine. No evidence for significant spinal canal sten osis. 2. Facet joint arthropathy with moderate bilateral T11-T12 neural foraminal stenosis.
== END | disposition home or self-care (01) ==
LOC: RADMRIMAIN 19:55
PROVIDERS: ATTEND Orthopaedic Surgery
DX: M47.814 Spondylosis without myelopathy or radiculopathy, thoracic region (principal); M99.72 Connective tissue and disc stenosis of intervertebral foramina of thoracic region; M79.605 Pain in left leg; M79.604 Pain in right leg
CPT/HCPCS: 72146

== ENCOUNTER → 2024-05-05 | Outpatient (CLI) | payer MEDICAID ==
--- NOTE | 2024-05-05 14:10 | MM ---
Reason for Exam: Screening (asymptomatic). Last mammogram was performed 5 year(s) and 4 month(s) ago. Patient History: Menarche at age 11. First Full-Term at age 21. Left ovary removed at age 30. Right ovary removed at age 30. Hysterectomy at age 30. Postmenopausal. Risk Values: Lucie 5 year model risk: 1.3%. NCI Lifetime model risk: 7.6%. Prior Study Comparison: 02/02/2009 Screening Mammogram, [facility]. 09/09/2013 Bilateral Screening Mammogram, [facility]. 01/25/2019 Bilateral Screening Mammogram, [facility]. Tissue Density: The breasts are almost entirely fatty. Findings: Analyzed By CAD. Right breast: There is no suspicious group of microcalcifications or new suspicious mass. Left breast: There is no suspicious group of microcalcifications or new suspicious mass. Overall Assessment: Negative, BI-RAD 1 Management: Screening Mammogram of both breasts in [address] [facility] will attempt to contact patient to return for supplemental views and ultrasound if indicated. Patient should continue monthly self-breast exams. A clinical breast exam by your physician is recommended on an annual basis. This exam should not preclude additional follow-up of suspicious palpable abnormalities. Note on Lucie scores and lifetime risk: 1. A Lucie score greater than 3% is considered moderate risk. If this is the case, consider specialist referral to assess eligibility for a risk reducing agent. 2. If overall lifetime risk for the development of breast cancer is 20% or higher, the patient may qualify for future screening with alternating mammogram and breast MRI. Electronically signed and approved by: Srinath Watkins DO
[2024-05-05 16:02] LABS: Basophils # (A) 0.04 X 10*3/uL (0.00-0.10); Basophils % (A) 0.6 %; Eosinophils # (A) 0 X 10*3/uL (0.04-0.35); Eosinophils % (A) 0 %; HCT 38.1 % (37.2-46.3); Lymphocytes # (A) 0.57 X 10*3/uL (0.90-5.00); Lymphocytes % (A) 8.4 %; MCH 31.2 pg (27.0-32.0); MCHC 31.5 g/dL (32.0-37.0); Mean Platelet Volume 10.5 FL (9.5-12.2); Monocytes # (A) 0.39 X 10*3/uL (0.20-1.00); Monocytes % (A) 5.7 %; NRBC Per 100 WBC 0 X 10*3/uL (0.00-0.01); Neutrophils # (A) 5.79 X 10*3/uL (1.80-7.70); Platelet Count 275 X 10*3/uL (140-440); RBC 3.85 X 10*6/uL (4.10-5.20); RDW 14.7 % (11.5-14.5); WBC 6.81 X 10*3/uL (4.50-10.00)
[2024-05-05 16:22] LABS: Erythrocyte Sedimentation Rate 60 mm/Hr (0-30)
[2024-05-05 17:27] LABS: ALT 21 U/L (8-44); AST 22 U/L (13-35); Albumin 4.2 g/dL (3.8-4.9); Alkaline Phosphatase 130 U/L (41-126); Calcium 8.8 mg/dL (8.7-10.3); Carbon Dioxide 23.5 mmol/L (21.6-31.8); Chloride 106 mmol/L (96-109); Creatine Kinase 199 U/L (26-186); Globulin 2.8 g/dL (1.6-3.3); Glucose 129 mg/dL (70-110); Potassium 4.1 mmol/L (3.5-5.5); Sodium 143 mmol/L (135-145); Total Bilirubin 0.5 mg/dL (0.3-1.2)
[2024-05-06 01:08] LABS: DNA Double-Stranded POSITIVE
== END | disposition home or self-care (01) ==
LOC: RADMAMWWP 07:59
PROVIDERS: ATTEND Internal Medicine
DX: Z12.31 Encounter for screening mammogram for malignant neoplasm of breast (principal); M35.9 Systemic involvement of connective tissue, unspecified; Z79.899 Other long term (current) drug therapy; Z78.0 Asymptomatic menopausal state
CPT/HCPCS: 77063; 77067; 80053; 82550; 85025; 85652; 86140; 86160; 86225

== ENCOUNTER → 2024-10-31 | Outpatient (CLI) | payer MEDICAID ==
[2024-10-31 09:22] LABS: Appearance,Urine Cloudy (Clear); Bacteria,Urine Rare /hpf; Bilirubin,Urine Negative (Negative); Blood,Urine Negative (Negative); Color,Urine Yellow; Glucose,Urine (UA) Negative (Negative); Ketones,Urine Negative (Negative); Leukocyte Esterase,Urine Negative (Negative); Mucus,Urine Few /hpf; Nitrite,Urine Negative (Negative); PH, Urine 5.5 (5.0-8.0); Protein,Urine Trace (Negative); Specific Gravity,Urine 1.021 (1.001-1.035); Squamous Epithelial Cell,Urine 12 /hpf (0-4); Urobilinogen,Urine <2.0 mg/dL (<2.0); WBC,Urine 2 /hpf (0-5)
[2024-10-31 15:48] LABS: Basophils # (A) 0.04 X 10*3/uL (0.00-0.10); Basophils % (A) 0.7 %; Eosinophils # (A) 0.19 X 10*3/uL (0.04-0.35); Eosinophils % (A) 3.3 %; HGB 12.1 g/dL (12.0-15.0); Lymphocytes # (A) 0.57 X 10*3/uL (0.90-5.00); MCH 32.4 pg (27.0-32.0); MCHC 31.8 g/dL (32.0-37.0); MCV 101.6 FL (80.0-97.0); Mean Platelet Volume 10.6 FL (9.5-12.2); Monocytes # (A) 0.33 X 10*3/uL (0.20-1.00); Monocytes % (A) 5.8 %; NRBC Per 100 WBC 0 X 10*3/uL (0.00-0.01); Neutrophils # (A) 4.56 X 10*3/uL (1.80-7.70); Platelet Count 297 X 10*3/uL (140-440); RBC 3.74 X 10*6/uL (4.10-5.20); RDW 14.1 % (11.5-14.5)
[2024-10-31 16:25] LABS: Blood Urea Nitrogen 9.9 mg/dL (9.0-27.0); Carbon Dioxide 26.3 mmol/L (21.6-31.8); Chloride 106 mmol/L (96-109); Chol/HDL Ratio 3.14 Ratio; Glucose 98 mg/dL (70-110); Potassium 3.8 mmol/L (3.5-5.5); Sodium 144 mmol/L (135-145)
[2024-10-31 16:26] LABS: ALT 15 U/L (8-44); AST 18 U/L (13-35); Albumin 4.1 g/dL (3.8-4.9); Albumin/Globulin Ratio 1.71 Ratio (1.60-3.17); Alkaline Phosphatase 126 U/L (41-126); Bilirubin, Conjugated <0.20 mg/dL (0.20-0.40); Calcium 8.7 mg/dL (8.7-10.3); Globulin 2.4 g/dL (1.6-3.3); T4, Free (Free Thyroxine) 1.12 ng/dL (0.80-1.80); Total Bilirubin 0.5 mg/dL (0.3-1.2); Total Protein 6.5 g/dL (6.2-8.2)
[2024-10-31 16:45] LABS: Erythrocyte Sedimentation Rate 56 mm/Hr (0-30)
[2024-10-31 17:01] LABS: Bilirubin,Unconjugated >0.3 mg/dL (0.2-1.0)
[2024-11-01 01:34] LABS: DNA Double-Stranded Negative (Negative)
== END | disposition home or self-care (01) ==
LOC: LABWHC1 08:41
PROVIDERS: ATTEND Internal Medicine Rheumatology
DX: M32.9 Systemic lupus erythematosus, unspecified (principal); F33.1 Major depressive disorder, recurrent, moderate; M25.561 Pain in right knee; M79.645 Pain in left finger(s); R70.0 Elevated erythrocyte sedimentation rate; Z79.899 Other long term (current) drug therapy
CPT/HCPCS: 36415; 80053; 80061; 81001; 82248; 82306; 83036; 84439; 84443; 84479; 85025; 85652; 86140; 86160; 86225

== ENCOUNTER → 2025-02-09 | Outpatient (CLI) | payer MEDICAID ==
[2025-02-09 13:40] VITALS: BP 123/63; PULSE 84; RESP 16; TEMP 97.6
--- NOTE | 2025-02-09 14:44 | P.SLEEP ---
History of Present Illness DATE: 02/09/25 CONSULTATION/NEW PATIENT EVALUATION HISTORY OF PRESENT ILLNESS/SLEEP-WAKE EVALUATION: 69-year-old lady had been evaluated in the sleep center for obstructive sleep apnea hypopnea syndrome. Patient has history of obstructive sleep apnea for about 20 years. She did not have any sleep study since that time. Patient continued to use his CPAP equipment, but has multiple awakenings from sleep while using CPAP. SLEEP SCHEDULE: Usually sleep schedule from 10 PM to 5 AM on weekdays and from 11 PM to 8 AM on weekend. FALLING ASLEEP: Usually no problems with falling asleep. DURING SLEEP: Patient is using CPAP equipment but wakes up from sleep multiple times around 4 with 2 episodes of nocturia. No history of hypnogogical hallucinations, sleep paralysis, or cataplexy. DURING THE DAY/WAKE STATE: In the morning patient wake up tired, falling asleep during the day, has problems with concentration. Winston sleepiness scale is 7. Sometimes patient falling asleep during the day. PAST MEDICAL HISTORY: Lupus erythematosus, hypothyroidism, hypertension, depression. PAST SURGICAL HISTORY: Tonsillectomy, bariatric surgery. MEDICATIONS: Have been reviewed please see below. SOCIAL HISTORY: Please see below. FAMILY HISTORY: Please see below. REVIEW OF SYSTEMS: Multiple awakenings from sleep on CPAP. No fevers. No double vision. No recent chest pain. No shortness of breath. No abdominal pain. No bleeding episodes. No blood in urine. No seizure episodes. PHYSICAL EXAMINATION: GENERAL: A pleasant patient without any distress. VITAL SIGNS: Please see below, weight 281 pounds, BMI 50.5. HEENT: PERRLA, EOMI. Evaluation of oropharynx showed tongue protrudes midline, low position of soft palate Mallampati 4. NECK: Supple. No JVD. Thyroid is not palpable. 17-1/4 inches in circumference. LUNGS: Clear to percussion and to auscultation. Good air exchange. No wheezing or rhonchi. HEART: S1, S2 regular. No murmurs, gallops or rubs. ABDOMEN: Soft and nontender. Bowel sounds are present. No organomegaly appreciated. EXTREMITIES: No clubbing or cyanosis. TRANSMISSION SPECIALIST: Awake, alert, and oriented x3. Cranial nerves 2 to 7 intact. There is no fasciculation or atrophy noted. No focal deficits observed. ASSESSMENT: 1. Obstructive sleep apnea hypopnea syndrome for 20 years, nor any recent sleep study. Patient is on treatment with CPAP, but has multiple awakenings from sleep, significant change in cough weight up for last years. Extremely low position of soft 12 Mallampati 4, wide neck 17-1/4 inches in circumference. Obstructive sleep apnea hypopnea syndrome. 2. Obesity, BMI 50.5. 3. Lupus erythematosus. 4. Hypertension. 5. Hypothyroidism. 6 . Depression. 7. Status post tonsillectomy. 8. Status post bariatric surgery. PLAN: 1. Polysomnography for evaluation of patient's breathing during sleep at the present time. 2. Following plan after reading sleep study. 3. Preferable position during sleep on the side. 4. No driving if patient feels any sleepiness. Patient is aware of civil and criminal liability for unsafe driving. 5. Sleep hygiene with regular sleep time for at least 7.5-8 hours. 6. Watching and losing weight. Thank you very much for referring this patient for consultation. Sincerely, Seven Ndiaye MD, PhD, FAASM. Diplomat of [place] [employer], Sleep Medicine Board by [place] [employer] [place] [employer] [facility] [place] cc: Ashley Alas DO Past Medical History Past Medical History: GERD/Reflux, Hypertension, Musculoskeletal Disorder, Sleep Apnea/CPAP/BIPAP, Thyroid Disorder Additional Past Medical History / Comment(s): Lupus History of Any Multi-Drug Resistant Organisms: None Reported Past Surgical History: Section, Cholecystectomy, Hysterectomy, Orthopedic Surgery, Tonsillectomy Additional Past Surgical History / Comment(s): 4 Left knee surgeries Past Anesthesia/Blood Transfusion Reactions: No Reported Reaction Past Psychological History: Depression Smoking Status: Never smoker Past Alcohol Use History: Occasional Past Drug Use History: None Reported - Past Family History Father Family Medical History: Cancer, Coronary Artery Disease (CAD), CVA/TIA, Diabetes Mellitus, GERD/Reflux, Hyperlipidemia, Hypertension, Sleep Apnea/CPAP/BIPAP, Thyroid Disorder Additional Family Medical History / Comment(s): Lung problems, snoring Mother Family Medical History: Coronary Artery Disease (CAD), Diabetes Mellitus, Hypertension, Renal Disease, Sleep Apnea/CPAP/BIPAP Additional Family Medical History / Comment(s): snoring, anemia, mental illness Medications and Allergies Home Medications Medication Instructions Recorded Confirmed Type DULoxetine HCL [Cymbalta] 60 mg PO BID 08/10/14 02/09/25 History Hydroxychloroquine Sulfate 200 mg PO BID 08/10/14 02/09/25 History [Plaquenil] Pantoprazole Sodium [Protonix] 40 mg PO DAILY 08/10/14 02/09/25 History azaTHIOprine [Imuran] 25 mg PO BID 12/13/14 02/09/25 History B,C/Folic/Zinc/Copper Ox/Vit E 1 tab PO DAILY 07/28/21 02/09/25 History [Stress B-Complex Tablet] Calcium Carbonate [Calcium] 600 mg PO DAILY 07/28/21 02/09/25 History Levothyroxine Sodium [Synthroid] 88 mcg PO DAILY 07/28/21 02/09/25 History Multivitamins, Thera [Multivitamin 1 tab PO DAILY 07/28/21 02/09/25 History (formulary)] amLODIPine [Norvasc] 5 mg PO DAILY #20 tab 07/28/21 02/09/25 Rx carvediloL [Coreg] 3.125 mg PO BID 03/26/23 02/09/25 History Allergies Allergy/AdvReac Type Severity Reaction Status Date / Time No Known Allergies Allergy Verified 04/16/23 13:26 Physical Exam Vitals: Vital Signs Temp Pulse Resp BP Pulse Ox 02/09/25 13:38 97.6 F 84 16 123/63 94 L Intake and Output 02/08/25 02/09/25 02/09/25 22:59 06:59 14:59 Other: Weight 127.459 kg Sleep Note - Sleep Data ESS Total: 7 - Sleep Note Sleep Note: Temperature: 97.6 F Pulse Rate: 84 Respiratory Rate: 16 Blood Pressure: 123/63 SpO2: 94 Height: 5 ft 2.5 in Weight: 127.459 kg BMI: Neck Circumference: 17.2
== END ==
LOC: 3 N SLEEP 13:16
PROVIDERS: ATTEND Internal Medicine
DX: G47.33 Obstructive sleep apnea (adult) (pediatric) (principal); E66.9 Obesity, unspecified; L93.0 Discoid lupus erythematosus; I10 Essential (primary) hypertension; F32.A Depression, unspecified; E03.9 Hypothyroidism, unspecified; Z68.43 Body mass index [BMI] 50.0-59.9, adult; Z98.890 Other specified postprocedural states; Z99.89 Dependence on other enabling machines and devices; Z90.89 Acquired absence of other organs
CPT/HCPCS: 99211

== ENCOUNTER 2025-03-16 19:42 | Outpatient (CLI) | payer MEDICAID ==
--- NOTE | 2025-03-23 15:09 | P.PCN ---
Description of Procedure: POLYSOMNOGRAPHY REPORT PROCEDURE(S)/DATE(S): Polysomnography 03/16/2025 CLINICAL: Patient has been seen in the sleep center for evaluation of obstructive sleep apnea-hypopnea syndrome. Please see my consultation. Sleep study has been done for evaluation of patient breathing during the sleep. PROCEDURE: The standard montage for clinical polysomnography included the electroencephalogram, the electrooculogram, the mentalis surface electromyography and Lead II cardiography. The respiratory battery consisted of measurements of nasal/buccal air flow, pressure transducer measurements from nose, thoracic and/or abdominal effort and intercostal surface electromyography. Video monitoring has been done to check for any parasomnia events. Nocturnal oxyhemoglobin saturations were obtained by finger oximetry. Step-oquendo titration with positive airway pressure was utilized to control the respiratory events, if necessary. RESULTS: During the diagnostic sleep study sleep efficiency was slightly decreased to 82.9%. Latency to sleep onset was borderline 26.5 min. Sleep architecture showed stage NI was short 1.6%, Delta sleep was normal 7.3%, REM sleep was practically absent 0.1%. Respiratory channel showed 0 obstructive apneas, 0 mixed apneas, 0 central apneas, 26 hypopneas with lowest oxygen level 86%. Oxygen level was below or equal 88% for 2.1 minutes. Total apnea hypopnea index was 4.6 following 4% oxygen desaturation criteria for scoring hypopneas and 7.3 following 3% oxygen desaturation criteria for scoring hypopneas. Heart rate was in the range between 84 and 79, average 71. EMG showed 0 periodic limb movements per hour. IMPRESSIONS: 1. Obstructive sleep apnea hypopnea syndrome in mild range following 3% oxygen desaturation criteria for hypopneas. Normal apnea-hypopnea index following scoring with 4% oxygen distasteful hypopneas. Patient is on treatment with CPAP every night which could be the reason for false negative results of diagnostic study. 2. No significant periodic limb movements have been documented. Please see other impressions from consultation. I discussed results of sleep test with patient over the phone. PLAN: 1. We will repeat home sleep apnea test. 2. Losing weight program. 3. Sleep hygiene with regular time in bed for at least 7-1/2 hours. 4. No driving if feeling sleepiness. Thank you very much for allowing me to participate in the management of your patient. Sincerely, Seven Stefadu, MD, PhD, FAASM. Diplomat of [place] [employer], Sleep Medicine Board by [place] [employer] [facility] [place] cc: Bishop Ramirez DO
== END 2025-03-17 06:00 | disposition home or self-care (01) ==
LOC: 3 N SLEEP 19:42
PROVIDERS: ATTEND Internal Medicine
DX: G47.33 Obstructive sleep apnea (adult) (pediatric) (principal); Z99.89 Dependence on other enabling machines and devices
CPT/HCPCS: 95810

== ENCOUNTER → 2025-05-19 | Outpatient (CLI) | payer MEDICAID ==
[2025-05-19 18:23] LABS: Basophils # (A) 0.01 X 10*3/uL (0.00-0.10); Basophils % (A) 0.2 %; Eosinophils # (A) 0 X 10*3/uL (0.04-0.35); Eosinophils % (A) 0 %; HCT 38.5 % (37.2-46.3); HGB 12.6 g/dL (12.0-15.0); Lymphocytes # (A) 0.44 X 10*3/uL (0.90-5.00); Lymphocytes % (A) 10.4 %; MCH 33.6 pg (27.0-32.0); MCHC 32.7 g/dL (32.0-37.0); MCV 102.7 FL (80.0-97.0); Mean Platelet Volume 10.8 FL (9.5-12.2); Monocytes # (A) 0.54 X 10*3/uL (0.20-1.00); Monocytes % (A) 12.8 %; NRBC Per 100 WBC 0 X 10*3/uL (0.00-0.01); Neutrophils # (A) 3.21 X 10*3/uL (1.80-7.70); Neutrophils % (A) 76.1 %; Platelet Count 197 X 10*3/uL (140-440); RBC 3.75 X 10*6/uL (4.10-5.20); WBC 4.22 X 10*3/uL (4.50-10.00)
[2025-05-19 18:49] LABS: Erythrocyte Sedimentation Rate 36 mm/Hr (0-30)
[2025-05-19 19:22] LABS: Appearance,Urine Clear (Clear); Bilirubin,Urine Negative (Negative); Blood,Urine Negative (Negative); Color,Urine Yellow (Yellow); Ketones,Urine Negative (Negative); Nitrite,Urine Negative (Negative); Specific Gravity,Urine 1.006 (1.001-1.030); Urobilinogen,Urine 0.2 E.U./DL
[2025-05-19 19:33] LABS: ALT 22 U/L (8-44); AST 24 U/L (13-35); Albumin 4.1 g/dL (3.8-4.9); Alkaline Phosphatase 100 U/L (41-126); Blood Urea Nitrogen 8.1 mg/dL (9.0-27.0); Calcium 8.7 mg/dL (8.7-10.3); Carbon Dioxide 21.9 mmol/L (21.6-31.8); Chloride 106 mmol/L (96-109); Glucose 85 mg/dL (70-110); Potassium 3.6 mmol/L (3.5-5.5); Sodium 141 mmol/L (135-145); Total Bilirubin 0.6 mg/dL (0.3-1.2); Total Protein 6.4 g/dL (6.2-8.2)
[2025-05-19 19:34] LABS: Albumin/Globulin Ratio 1.78 Ratio (1.60-3.17); Globulin 2.3 g/dL (1.6-3.3)
[2025-05-19 22:03] LABS: Anti-DNA, DS unit <1.0 IU/mL; DNA Double-Stranded Negative (Negative)
== END | disposition home or self-care (01) ==
LOC: LABWHC1 11:56
PROVIDERS: ATTEND Internal Medicine Rheumatology
DX: M32.9 Systemic lupus erythematosus, unspecified (principal); R70.0 Elevated erythrocyte sedimentation rate; Z79.899 Other long term (current) drug therapy
CPT/HCPCS: 36415; 80053; 81003; 85025; 85652; 86140; 86160; 86225